=== PATIENT | male | born 1960 | race Caucasian/White ===

== ENCOUNTER 2021-01-27 03:55 | Inpatient (IN) ==
[2021-01-27] MEDS ORDERED: Insulin Infusion 100unit/100mL 100 UNIT/100 ML BAG IV ONE (04:23)
[2021-01-27] MEDS ORDERED: Vancomycin per Pharmacy 1 EA NOTE FOLLOW UP PRN (05:25)
[2021-01-27] MEDS: Dexmedetomidine 1,000 MCG in NS 0.9% 250 ml 240 ML IV SCH (05:48)
[2021-01-27] MEDS ORDERED: Cefepime 2 GM in Dextrose 2 GM/50 ML BAG IV SCH (06:00)
[2021-01-27 06:01] LABS: ABS Monocytes 0.8 10^3/ul (0-0.8); ABS Neutrophils 8.4 10^3/ul (1.5-7.7); Hematocrit 38 % (42-52); Hemoglobin 12.2 g/dL (14.0-18.0); Lymphocyte % 9.6 %; Mean Corpuscular HGB Conc 32 g/dL (31-36); Mean Corpuscular Hemoglobin 29 pg (27-31); Mean Corpuscular Volume 90 fL (80-94); Nucleated Red Blood Cells % 0.1; Red Blood Count 4.26 10^6 /uL (4.18-5.48); Red Cell Distribution Width 15 % (10-15); White Blood Count 10.2 10^3/uL (3.5-10.8)
[2021-01-27 06:02] LABS: INR 1.21 (0.86-1.15)
[2021-01-27 06:07] LABS: ALT 9 U/L (7-52); AST 19 U/L (13-39); Albumin 2.6 g/dL (3.2-5.2); Albumin/Globulin Ratio 0.6 (1-3); Alkaline Phosphatase 114 U/L (35-149); Blood Urea Nitrogen 52 mg/dL (6-24); CO2 Carbon Dioxide 24 mmol/L (22-32); Calcium 8.3 mg/dL (8.6-10.3); Creatine Kinase 198 U/L (10-223); Globulin 4.3 g/dL (2-4); Glucose 467 mg/dL (70-100); Indirect Bilirubin 0.3 mg/dL (0.3-1.0); Magnesium 2.4 mg/dL (1.9-2.7); Potassium 4.2 mmol/L (3.5-5.0); Total Protein 6.9 g/dL (6.4-8.9); eGFR CKD-EPI 56.3 (>60)
[2021-01-27 06:12] LABS: CRP High Sensitivity 189.58 mg/L (<2.00)
[2021-01-27 06:14] LABS: Troponin I 0.05 ng/mL (<0.03)
[2021-01-27 06:15] LABS: Anion Gap 9 mmol/L (2-11); Chloride 119 mmol/L (101-111); Sodium 152 mmol/L (135-145)
[2021-01-27 06:18] LABS: Platelet Count Platelets clumped. 10^3/uL (150-450)
[2021-01-27 06:23] LABS: Phosphorus 2.6 mg/dL (2.5-5.0)
[2021-01-27 06:26] LABS: TSH Ultra Thyroid Stim Horm 0.29 mcIU/mL (0.34-5.60)
[2021-01-27 06:37] LABS: Vitamin B12 1102 pg/mL (180-914)
[2021-01-27] MEDS ORDERED: Acetaminophen IV 1 GM/100ML 100 ML IV PRN (06:50)
[2021-01-27] MEDS ORDERED: NS 0.45% KCl 20 Meq 1000 ml 1,000 ML IV SCH (07:00)
[2021-01-27] MEDS: NS 0.45% KCl 20 Meq 1000 ml 1,000 ML IV SCH ×2 (07:41→20:15)
[2021-01-27 08:18] LABS: Glucose Confirmatory 495 mg/dL (70-100)
[2021-01-27 08:45] LABS: Vancomycin Random 19.3 mcg/mL
[2021-01-27 09:18] LABS: Glucose 520 mg/dL (70-100); Glucose Confirmatory 520 mg/dL (70-100)
[2021-01-27] MEDS ORDERED: Insulin GLARGINE 100 un/ml 10 ml VIAL SUBCUT ONE (09:20)
[2021-01-27 09:32] LABS: Blood Urea Nitrogen 52 mg/dL (6-24); CO2 Carbon Dioxide 22 mmol/L (22-32); Calcium 8.4 mg/dL (8.6-10.3); Magnesium 2.4 mg/dL (1.9-2.7); Phosphorus 2.6 mg/dL (2.5-5.0); Potassium 4.1 mmol/L (3.5-5.0); eGFR CKD-EPI 59.8 (>60)
[2021-01-27 09:38] LABS: Sodium 156 mmol/L (135-145)
[2021-01-27 09:39] LABS: Anion Gap 13 mmol/L (2-11); Chloride 121 mmol/L (101-111)
[2021-01-27 09:46] LABS: Glucose Confirmatory 483 mg/dL (70-100)
[2021-01-27] MEDS ORDERED: Insulin Infusion 100unit/100mL 100 UNIT/100 ML BAG IV SCH (10:00)
[2021-01-27 10:30] LABS: PCO2 Arterial 42 mmHg (35-45); PO2 Arterial 75 mmHg (80-100)
[2021-01-27] MEDS: Silver Sulfadiazine 1% 400gm JAR TOPICAL SCH ×2 (10:56→21:28)
[2021-01-27 11:35] LABS: Mean Platelet Volume 8.8 fL (7.4-10.4); Platelet Count 204 10^3/uL (150-450)
[2021-01-27 12:52] LABS: Calcium 8.6 mg/dL (8.6-10.3); Magnesium 2.7 mg/dL (1.9-2.7); Phosphorus 1.5 mg/dL (2.5-5.0); Potassium 3.4 mmol/L (3.5-5.0); eGFR CKD-EPI 68.7 (>60)
[2021-01-27] MEDS ORDERED: Potassium Phosphate IV 15 MMOLE in NS 0.9% 250 ml 250 ML IVPB ONE (13:03)
[2021-01-27] MEDS: Vancomycin 1,000 MG in NS 0.9% 250 ml 250 ML IVPB SCH (13:30)
[2021-01-27] MEDS ORDERED: Perflutren Lipid Microsphere 3 ML VIAL ONE (15:16)
[2021-01-27] MEDS: KCL 20 MEQ/100 ML IVPREMIX 20 MEQ/100 ML BAG IV SCH ×2 (15:28→17:41)
[2021-01-27] MEDS ORDERED: Piperacillin/Tazobac ADVAN 3.375 GM in NS 0.9% 100 ml BAG 100 ML IV ONE (16:40)
[2021-01-27] MEDS ORDERED: Zosyn per Pharmacy NOTE FOLLOW UP SCH (17:00)
[2021-01-27 17:28] LABS: Calcium 8.3 mg/dL (8.6-10.3); Magnesium 2.4 mg/dL (1.9-2.7); Phosphorus 2.5 mg/dL (2.5-5.0); Potassium 4.5 mmol/L (3.5-5.0); eGFR CKD-EPI 63.7 (>60)
[2021-01-27] MEDS ORDERED: Potassium Chloride IV 40 MEQ in Lactated Ringers 1000 ml BAG 1,000 ML IVPB SCH (17:30)
[2021-01-27] MEDS ORDERED: Dextrose 50% Syringe 50 ml 25 GM/50 ML SYRINGE IV PUSH PRN (17:41)
[2021-01-27] MEDS ORDERED: Insulin GLARGINE 100 un/ml 10 ml VIAL SUBCUT SCH (18:00)
[2021-01-27 21:07] LABS: Magnesium 2.4 mg/dL (1.9-2.7); Phosphorus 2.8 mg/dL (2.5-5.0); Potassium 4.5 mmol/L (3.5-5.0); eGFR CKD-EPI 68.1 (>60)
[2021-01-27] MEDS: Enoxaparin 40 MG/0.4 ML SYR SUBCUT SCH (21:28)
[2021-01-27] MEDS: ZOSYN 3.375 GM Q8H per EXTENDED INFUSION IV SCH (21:28)
[2021-01-28 00:14] LABS: Urine Appearance Cloudy; Urine Bilirubin Negative (Negative); Urine Blood 3+ (Negative); Urine Color Yellow; Urine Glucose 3+(>=500 mg/dL) (Negative); Urine Ketones 1+ (Negative); Urine Nitrite Negative (Negative); Urine Protein Negative (Negative); Urine Specific Gravity 1.026 (1.002-1.030); Urine Urobilinogen Negative (Negative)
[2021-01-28 00:21] LABS: Urine Bacteria 1+ (Absent); Urine Red Blood Cell 3+(>10/hpf) (Absent); Urine Uric Acid Crystals Present (Absent); Urine White Blood Cell 2+(11-20/hpf) (Absent)
[2021-01-28 00:25] LABS: Magnesium 2.3 mg/dL (1.9-2.7); Phosphorus 2.3 mg/dL (2.5-5.0); Potassium 4.1 mmol/L (3.5-5.0)
[2021-01-28 00:33] LABS: Urine Benzodiazepine Screen Presumptive Positive (None Detect); Urine Cannabinoids Screen None Detected (None Detect); Urine Opiates Screen None Detected (None Detect)
[2021-01-28] MEDS: NS 0.45% KCl 20 Meq 1000 ml 1,000 ML IV SCH ×2 (00:46→06:20)
[2021-01-28] MEDS: Vancomycin 1,000 MG in NS 0.9% 250 ml 250 ML IVPB SCH ×2 (01:10→13:41)
[2021-01-28 04:23] LABS: Hematocrit 32 % (42-52); Hemoglobin 10.4 g/dL (14.0-18.0); Mean Corpuscular HGB Conc 33 g/dL (31-36); Mean Corpuscular Hemoglobin 29 pg (27-31); Mean Corpuscular Volume 88 fL (80-94); Mean Platelet Volume 8.7 fL (7.4-10.4); Platelet Count 176 10^3/uL (150-450); Red Blood Count 3.63 10^6 /uL (4.18-5.48); Red Cell Distribution Width 15 % (10-15); White Blood Count 9.3 10^3/uL (3.5-10.8)
[2021-01-28 04:42] LABS: Albumin 2.2 g/dL (3.2-5.2); Albumin/Globulin Ratio 0.5 (1-3); Direct Bilirubin 0.1 mg/dL (0.03-0.18); Globulin 4.2 g/dL (2-4); Indirect Bilirubin 0.3 mg/dL (0.3-1.0); Magnesium 2.3 mg/dL (1.9-2.7); Phosphorus 2.1 mg/dL (2.5-5.0); Potassium 4.2 mmol/L (3.5-5.0); Total Bilirubin 0.4 mg/dL (0.2-1.0); Total Protein 6.4 g/dL (6.4-8.9); eGFR CKD-EPI 84.2 (>60)
[2021-01-28] MEDS: ZOSYN 3.375 GM Q8H per EXTENDED INFUSION IV SCH ×3 (05:51→21:32)
[2021-01-28] MEDS: Silver Sulfadiazine 1% 400gm JAR TOPICAL SCH ×2 (11:51→21:26)
[2021-01-28] MEDS: Insulin GLARGINE 100 un/ml 10 ml VIAL SUBCUT SCH ×2 (11:57→21:26)
[2021-01-28] MEDS ORDERED: Vancomycin Trough Check NOTE FOLLOW UP ONE (12:30)
[2021-01-28] MEDS ORDERED: Remdesivir 100 mg Vial 200 MG in NS 0.9% 250 ml 210 ML IV ONE (12:30)
[2021-01-28] MEDS: Dexmedetomidine 1,000 MCG in NS 0.9% 250 ml 240 ML IV SCH (12:34)
[2021-01-28 12:45] LABS: C Reactive Protein 185.23 mg/L (<8.01); Calcium 7.9 mg/dL (8.6-10.3); Potassium 4.3 mmol/L (3.5-5.0); eGFR CKD-EPI 90.5 (>60)
[2021-01-28 13:01] LABS: INR 1.3 (0.86-1.15)
[2021-01-28] MEDS ORDERED: Dextrose 50% Syringe 50 ml 25 GM/50 ML SYRINGE IV PUSH PRN (15:37)
[2021-01-28 18:37] LABS: Calcium 7.9 mg/dL (8.6-10.3); Potassium 3.9 mmol/L (3.5-5.0); eGFR CKD-EPI 95.2 (>60)
[2021-01-28] MEDS: Enoxaparin 40 MG/0.4 ML SYR SUBCUT SCH (21:25)
[2021-01-29] MEDS: Vancomycin 1,250 MG in NS 0.9% 250 ml 250 ML IVPB SCH ×3 (01:10→22:40)
[2021-01-29] MEDS: ZOSYN 3.375 GM Q8H per EXTENDED INFUSION IV SCH ×2 (06:14→14:37)
[2021-01-29] MEDS: Silver Sulfadiazine 1% 400gm JAR TOPICAL SCH ×2 (07:52→22:40)
[2021-01-29] MEDS: Insulin GLARGINE 100 un/ml 10 ml VIAL SUBCUT SCH ×2 (09:11→19:59)
[2021-01-29] MEDS ORDERED: Furosemide 40 mg/4 ml IV VIAL IV ONE (10:41)
[2021-01-29 12:15] LABS: Hematocrit 32 % (42-52); Hemoglobin 10.2 g/dL (14.0-18.0); Mean Corpuscular HGB Conc 33 g/dL (31-36); Mean Corpuscular Hemoglobin 29 pg (27-31); Mean Corpuscular Volume 88 fL (80-94); Mean Platelet Volume 9.3 fL (7.4-10.4); Platelet Count 118 10^3/uL (150-450); Red Blood Count 3.58 10^6 /uL (4.18-5.48); Red Cell Distribution Width 15 % (10-15); White Blood Count 8.1 10^3/uL (3.5-10.8)
[2021-01-29 12:33] LABS: Albumin 2.3 g/dL (3.2-5.2); Albumin/Globulin Ratio 0.5 (1-3); C Reactive Protein 139.83 mg/L (<8.01); Calcium 8.3 mg/dL (8.6-10.3); Globulin 4.2 g/dL (2-4); Magnesium 2.2 mg/dL (1.9-2.7); Phosphorus 2.8 mg/dL (2.5-5.0); Potassium 3.7 mmol/L (3.5-5.0); Total Bilirubin 0.6 mg/dL (0.2-1.0); Total Protein 6.5 g/dL (6.4-8.9)
[2021-01-29] MEDS: Remdesivir 100 mg Vial 100 MG in NS 0.9% 250 ml 230 ML IV SCH (12:50)
[2021-01-29] MEDS ORDERED: Dextrose 50% Syringe 50 ml 25 GM/50 ML SYRINGE IV PUSH PRN (15:55)
[2021-01-29] MEDS ORDERED: LORazepam 2 mg VIAL 1 ml IV PUSH ONE (19:45)
[2021-01-29] MEDS ORDERED: Lorazepam PYXIS KEY PRN (19:45)
[2021-01-29] MEDS ORDERED: Lorazepam PYXIS KEY ONE (19:53)
[2021-01-29] MEDS: Enoxaparin 40 MG/0.4 ML SYR SUBCUT SCH (20:00)
[2021-01-29] MEDS: Saline FLUSH-CENTRAL 10 ML SYRINGE CENT\\PICC SCH (20:00)
[2021-01-29] MEDS ORDERED: Iodixanol (CONTRAST) 320 MG/ML 100 ML SDV IV ONE (20:38)
[2021-01-29] MEDS ORDERED: Gadoteridol (CONTRAST) 279.3 MG/ML 10 ML IV ONE (20:49)
[2021-01-29] MEDS ORDERED: cefTRIAXone 2 GM ADDV.VIAL 2 GM in NS 0.9% 100 ml BAG 100 ML IV SCH (21:00)
[2021-01-30 05:17] LABS: Hematocrit 31 % (42-52); Hemoglobin 10.1 g/dL (14.0-18.0); Mean Corpuscular HGB Conc 33 g/dL (31-36); Mean Corpuscular Hemoglobin 29 pg (27-31); Mean Corpuscular Volume 86 fL (80-94); Platelet Count 152 10^3/uL (150-450); Red Blood Count 3.52 10^6 /uL (4.18-5.48); Red Cell Distribution Width 15 % (10-15); White Blood Count 7.1 10^3/uL (3.5-10.8)
[2021-01-30 05:30] LABS: Calcium 7.9 mg/dL (8.6-10.3); Magnesium 2.1 mg/dL (1.9-2.7); Potassium 3.3 mmol/L (3.5-5.0); eGFR CKD-EPI 87.2 (>60)
[2021-01-30] MEDS ORDERED: NS 0.45% 1000 ml BAG 1,000 ML IV SCH ×2 (06:00→14:16)
[2021-01-30] MEDS: KCL 20 MEQ/100 ML IVPREMIX 20 MEQ/100 ML BAG IV SCH ×3 (06:31→11:27)
[2021-01-30] MEDS: Saline FLUSH-CENTRAL 10 ML SYRINGE CENT\\PICC SCH ×2 (08:05→20:59)
[2021-01-30] MEDS: Insulin GLARGINE 100 un/ml 10 ml VIAL SUBCUT SCH ×2 (08:23→21:27)
[2021-01-30] MEDS: Silver Sulfadiazine 1% 400gm JAR TOPICAL SCH ×2 (08:28→21:04)
[2021-01-30] MEDS: Remdesivir 100 mg Vial 100 MG in NS 0.9% 250 ml 230 ML IV SCH (08:52)
[2021-01-30] MEDS ORDERED: Vancomycin Trough Check NOTE FOLLOW UP ONE (11:00)
[2021-01-30 13:57] LABS: Calcium 7.7 mg/dL (8.6-10.3); Potassium 3.7 mmol/L (3.5-5.0); eGFR CKD-EPI 91.6 (>60)
[2021-01-30] MEDS: Oxacillin 2 GM in NS 0.9% 100 ml BAG 100 ML IVPB SCH ×3 (14:09→23:12)
[2021-01-30] MEDS ORDERED: Magnesium Hydroxide LIQ 30 ML UDC PO ONE (15:12)
[2021-01-30] MEDS: Saliva Substitute (NF) 1 SPRAY BTL MT SCH ×4 (16:52→21:00)
[2021-01-30 19:17] LABS: Calcium 7.5 mg/dL (8.6-10.3); Potassium 3.4 mmol/L (3.5-5.0); eGFR CKD-EPI 89.4 (>60)
[2021-01-30] MEDS ORDERED: Potassium Chloride LIQUID 20 MEQ/15 ML LIQUID PO ONE (19:21)
[2021-01-30] MEDS ORDERED: NS 0.9% w/ 40 Meq KCL 1000 ML 1,000 ML IV SCH (20:00)
[2021-01-30] MEDS: Enoxaparin 40 MG/0.4 ML SYR SUBCUT SCH (20:58)
[2021-01-30] MEDS: Senna TAB 8.6 mg TAB PO SCH (20:59)
[2021-01-31] MEDS: Saliva Substitute (NF) 1 SPRAY BTL MT SCH ×14 (00:20→22:54)
[2021-01-31] MEDS: Oxacillin 2 GM in NS 0.9% 100 ml BAG 100 ML IVPB SCH ×6 (02:06→23:22)
[2021-01-31 06:52] LABS: Hematocrit 29 % (42-52); Hemoglobin 9.4 g/dL (14.0-18.0); Mean Corpuscular HGB Conc 32 g/dL (31-36); Mean Corpuscular Hemoglobin 28 pg (27-31); Mean Corpuscular Volume 88 fL (80-94); Mean Platelet Volume 9.1 fL (7.4-10.4); Platelet Count 138 10^3/uL (150-450); Red Blood Count 3.31 10^6 /uL (4.18-5.48); Red Cell Distribution Width 15 % (10-15); White Blood Count 6.1 10^3/uL (3.5-10.8)
[2021-01-31 06:55] LABS: Calcium 7.4 mg/dL (8.6-10.3); Magnesium 2.1 mg/dL (1.9-2.7); Potassium 3.6 mmol/L (3.5-5.0)
[2021-01-31] MEDS: Silver Sulfadiazine 1% 400gm JAR TOPICAL SCH (09:38)
[2021-01-31] MEDS ORDERED: KCL 20 MEQ/100 ML IVPREMIX 20 MEQ/100 ML BAG IV ONE (10:38)
[2021-01-31] MEDS: Saline FLUSH-CENTRAL 10 ML SYRINGE CENT\\PICC SCH ×2 (10:47→22:54)
[2021-01-31] MEDS: Remdesivir 100 mg Vial 100 MG in NS 0.9% 250 ml 230 ML IV SCH (10:48)
[2021-01-31] MEDS: Senna TAB 8.6 mg TAB PO SCH ×2 (11:13→19:35)
[2021-01-31] MEDS ORDERED: Buffered Lidocaine 1% SYRIN 1 ml INTRADERM ONE (11:18)
[2021-01-31] MEDS: Insulin GLARGINE 100 un/ml 10 ml VIAL SUBCUT SCH ×2 (16:58→22:55)
[2021-01-31 22:24] LABS: Calcium 7.4 mg/dL (8.6-10.3); Potassium 3.2 mmol/L (3.5-5.0); eGFR CKD-EPI 88.3 (>60)
[2021-01-31] MEDS: Enoxaparin 40 MG/0.4 ML SYR SUBCUT SCH (22:55)
[2021-02-01] MEDS: Silver Sulfadiazine 1% 400gm JAR TOPICAL SCH ×3 (00:04→21:56)
[2021-02-01] MEDS: Saliva Substitute (NF) 1 SPRAY BTL MT SCH ×12 (00:17→22:45)
[2021-02-01] MEDS: Oxacillin 2 GM in NS 0.9% 100 ml BAG 100 ML IVPB SCH ×6 (02:35→21:54)
[2021-02-01 06:35] LABS: Hematocrit 29 % (42-52); Hemoglobin 9.7 g/dL (14.0-18.0); Mean Corpuscular HGB Conc 34 g/dL (31-36); Mean Corpuscular Hemoglobin 29 pg (27-31); Mean Corpuscular Volume 86 fL (80-94); Mean Platelet Volume 8.6 fL (7.4-10.4); Platelet Count 166 10^3/uL (150-450); Red Blood Count 3.33 10^6 /uL (4.18-5.48); Red Cell Distribution Width 14 % (10-15); White Blood Count 6.2 10^3/uL (3.5-10.8)
[2021-02-01 06:52] LABS: Calcium 7.5 mg/dL (8.6-10.3); Magnesium 2.1 mg/dL (1.9-2.7); Phosphorus 4.1 mg/dL (2.5-5.0); Potassium 2.8 mmol/L (3.5-5.0); eGFR CKD-EPI 77.8 (>60)
[2021-02-01] MEDS: Saline FLUSH-CENTRAL 10 ML SYRINGE CENT\\PICC SCH ×2 (07:56→21:56)
[2021-02-01] MEDS: Senna TAB 8.6 mg TAB PO SCH ×2 (07:56→21:53)
[2021-02-01] MEDS ORDERED: Potassium Chlor 10 meq TAB PO ONE (09:43)
[2021-02-01] MEDS: Remdesivir 100 mg Vial 100 MG in NS 0.9% 250 ml 230 ML IV SCH (10:22)
[2021-02-01] MEDS: KCL 20 MEQ/100 ML IVPREMIX 20 MEQ/100 ML BAG IV SCH ×2 (10:23→12:44)
[2021-02-01] MEDS ORDERED: NS 0.45% 1000 ml BAG 1,000 ML IV SCH (16:00)
[2021-02-01] MEDS: Insulin GLARGINE 100 un/ml 10 ml VIAL SUBCUT SCH (21:54)
[2021-02-01] MEDS: Enoxaparin 40 MG/0.4 ML SYR SUBCUT SCH (21:56)
[2021-02-02] MEDS: Oxacillin 2 GM in NS 0.9% 100 ml BAG 100 ML IVPB SCH ×6 (01:45→22:33)
[2021-02-02] MEDS: Saliva Substitute (NF) 1 SPRAY BTL MT SCH ×13 (01:49→22:59)
[2021-02-02 06:02] LABS: ABS Eosinophils 0.1 10^3/ul (0-0.6); ABS Lymphocytes 0.9 10^3/ul (1.0-4.8); ABS Monocytes 0.3 10^3/ul (0-0.8); ABS Neutrophils 5.4 10^3/ul (1.5-7.7); Eosinophil % 1.6 %; Hematocrit 25 % (42-52); Hemoglobin 8.4 g/dL (14.0-18.0); Lymphocyte % 13.2 %; Mean Corpuscular HGB Conc 34 g/dL (31-36); Mean Corpuscular Hemoglobin 28 pg (27-31); Mean Corpuscular Volume 85 fL (80-94); Mean Platelet Volume 8.4 fL (7.4-10.4); Platelet Count 171 10^3/uL (150-450); Red Blood Count 2.96 10^6 /uL (4.18-5.48); Red Cell Distribution Width 14 % (10-15); White Blood Count 6.7 10^3/uL (3.5-10.8)
[2021-02-02 06:57] LABS: eGFR CKD-EPI 101.8 (>60)
[2021-02-02 07:23] LABS: Calcium 6.2 mg/dL (8.6-10.3); Potassium 2.4 mmol/L (3.5-5.0)
[2021-02-02] MEDS: Saline FLUSH-CENTRAL 10 ML SYRINGE CENT\\PICC SCH ×2 (09:55→19:09)
[2021-02-02] MEDS: Silver Sulfadiazine 1% 400gm JAR TOPICAL SCH ×2 (09:56→22:59)
[2021-02-02] MEDS: Senna TAB 8.6 mg TAB PO SCH ×2 (09:56→19:18)
[2021-02-02 10:19] LABS: Calcium 7.4 mg/dL (8.6-10.3); eGFR CKD-EPI 84.2 (>60)
[2021-02-02 10:21] LABS: Potassium 2.7 mmol/L (3.5-5.0)
[2021-02-02] MEDS: Potassium Chlor 20 meq TAB.ER PO SCH ×2 (11:55→14:04)
[2021-02-02] MEDS: KCL 20 MEQ/100 ML IVPREMIX 20 MEQ/100 ML BAG IV SCH ×2 (11:55→14:04)
[2021-02-02 13:24] LABS: Magnesium 1.9 mg/dL (1.9-2.7)
[2021-02-02] MEDS: Enoxaparin 40 MG/0.4 ML SYR SUBCUT SCH (22:31)
[2021-02-02] MEDS: Insulin GLARGINE 100 un/ml 10 ml VIAL SUBCUT SCH (22:32)
[2021-02-03] MEDS: Saliva Substitute (NF) 1 SPRAY BTL MT SCH ×11 (01:24→22:20)
[2021-02-03] MEDS: Oxacillin 2 GM in NS 0.9% 100 ml BAG 100 ML IVPB SCH ×6 (02:10→22:19)
[2021-02-03 06:51] LABS: ABS Eosinophils 0.1 10^3/ul (0-0.6); ABS Lymphocytes 0.9 10^3/ul (1.0-4.8); ABS Monocytes 0.4 10^3/ul (0-0.8); ABS Neutrophils 5.1 10^3/ul (1.5-7.7); Eosinophil % 0.9 %; Hematocrit 26 % (42-52); Hemoglobin 8.8 g/dL (14.0-18.0); Lymphocyte % 14.3 %; Mean Corpuscular HGB Conc 34 g/dL (31-36); Mean Corpuscular Hemoglobin 29 pg (27-31); Mean Corpuscular Volume 85 fL (80-94); Mean Platelet Volume 8.3 fL (7.4-10.4); Nucleated Red Blood Cells % 0.1; Platelet Count 220 10^3/uL (150-450); Red Blood Count 3.05 10^6 /uL (4.18-5.48); Red Cell Distribution Width 14 % (10-15); White Blood Count 6.5 10^3/uL (3.5-10.8)
[2021-02-03 07:00] LABS: Calcium 7.3 mg/dL (8.6-10.3); Magnesium 2.1 mg/dL (1.9-2.7); eGFR CKD-EPI 87.2 (>60)
[2021-02-03] MEDS ORDERED: Potassium Chlor 20 meq TAB.ER PO ONE (08:54)
[2021-02-03] MEDS: Saline FLUSH-CENTRAL 10 ML SYRINGE CENT\\PICC SCH ×2 (09:00→22:18)
[2021-02-03] MEDS: Senna TAB 8.6 mg TAB PO SCH ×2 (09:03→20:01)
[2021-02-03] MEDS: Silver Sulfadiazine 1% 400gm JAR TOPICAL SCH ×2 (09:06→22:21)
[2021-02-03] MEDS: KCL 20 MEQ/100 ML IVPREMIX 20 MEQ/100 ML BAG IV SCH ×2 (09:19→11:30)
[2021-02-03] MEDS: Insulin GLARGINE 100 un/ml 10 ml VIAL SUBCUT SCH (22:18)
[2021-02-03] MEDS: Enoxaparin 40 MG/0.4 ML SYR SUBCUT SCH (22:19)
[2021-02-04] MEDS: Saliva Substitute (NF) 1 SPRAY BTL MT SCH ×12 (00:27→21:02)
[2021-02-04] MEDS: Oxacillin 2 GM in NS 0.9% 100 ml BAG 100 ML IVPB SCH ×6 (02:22→20:56)
[2021-02-04 06:29] LABS: Calcium 7.3 mg/dL (8.6-10.3); Magnesium 2.1 mg/dL (1.9-2.7); Potassium 2.9 mmol/L (3.5-5.0); eGFR CKD-EPI 95.2 (>60)
[2021-02-04] MEDS: Saline FLUSH-CENTRAL 10 ML SYRINGE CENT\\PICC SCH ×2 (08:30→22:10)
[2021-02-04] MEDS: Senna TAB 8.6 mg TAB PO SCH ×2 (08:33→22:11)
[2021-02-04] MEDS: Silver Sulfadiazine 1% 400gm JAR TOPICAL SCH ×2 (08:38→21:01)
[2021-02-04] MEDS: KCL 20 MEQ/100 ML IVPREMIX 20 MEQ/100 ML BAG IV SCH ×3 (11:09→18:20)
[2021-02-04] MEDS ORDERED: Ondansetron ODT 4 mg TAB 4 MG TAB SL PRN (18:15)
[2021-02-04] MEDS: Enoxaparin 40 MG/0.4 ML SYR SUBCUT SCH (20:55)
[2021-02-04] MEDS: Insulin GLARGINE 100 un/ml 10 ml VIAL SUBCUT SCH (20:56)
[2021-02-05] MEDS: Saliva Substitute (NF) 1 SPRAY BTL MT SCH ×12 (00:58→22:23)
[2021-02-05] MEDS: Oxacillin 2 GM in NS 0.9% 100 ml BAG 100 ML IVPB SCH ×6 (02:03→21:30)
[2021-02-05 06:29] LABS: ABS Eosinophils 0.1 10^3/ul (0-0.6); ABS Lymphocytes 1.5 10^3/ul (1.0-4.8); ABS Monocytes 0.6 10^3/ul (0-0.8); Eosinophil % 0.8 %; Hematocrit 26 % (42-52); Hemoglobin 8.7 g/dL (14.0-18.0); Lymphocyte % 18.9 %; Mean Corpuscular HGB Conc 34 g/dL (31-36); Mean Corpuscular Hemoglobin 29 pg (27-31); Mean Corpuscular Volume 85 fL (80-94); Mean Platelet Volume 7.5 fL (7.4-10.4); Platelet Count 361 10^3/uL (150-450); Red Blood Count 3.05 10^6 /uL (4.18-5.48); Red Cell Distribution Width 14 % (10-15); White Blood Count 8.2 10^3/uL (3.5-10.8)
[2021-02-05 06:42] LABS: Calcium 7.2 mg/dL (8.6-10.3); Potassium 2.9 mmol/L (3.5-5.0)
[2021-02-05] MEDS ORDERED: Potassium Chlor 20 meq TAB.ER PO ONE (08:56)
[2021-02-05] MEDS ORDERED: KCL 20 MEQ/100 ML IVPREMIX 20 MEQ/100 ML BAG IV ONE (08:57)
[2021-02-05] MEDS: Saline FLUSH-CENTRAL 10 ML SYRINGE CENT\\PICC SCH (09:12)
[2021-02-05] MEDS: Senna TAB 8.6 mg TAB PO SCH ×2 (09:12→22:22)
[2021-02-05] MEDS: Silver Sulfadiazine 1% 400gm JAR TOPICAL SCH ×2 (09:14→22:22)
[2021-02-05] MEDS: Potassium Chlor 20 meq TAB.ER PO SCH (11:31)
[2021-02-05 21:50] LABS: Calcium 7.3 mg/dL (8.6-10.3); Potassium 3.9 mmol/L (3.5-5.0); eGFR CKD-EPI 101.4 (>60)
[2021-02-05] MEDS: Enoxaparin 40 MG/0.4 ML SYR SUBCUT SCH (22:22)
[2021-02-06] MEDS: Saline FLUSH-CENTRAL 10 ML SYRINGE CENT\\PICC SCH ×3 (00:32→20:14)
[2021-02-06] MEDS: Insulin GLARGINE 100 un/ml 10 ml VIAL SUBCUT SCH ×2 (00:33→20:12)
[2021-02-06] MEDS: Saliva Substitute (NF) 1 SPRAY BTL MT SCH ×11 (00:33→23:00)
[2021-02-06] MEDS: Oxacillin 2 GM in NS 0.9% 100 ml BAG 100 ML IVPB SCH ×6 (02:13→20:22)
[2021-02-06 06:11] LABS: ABS Eosinophils 0.1 10^3/ul (0-0.6); ABS Lymphocytes 1.2 10^3/ul (1.0-4.8); ABS Monocytes 0.4 10^3/ul (0-0.8); ABS Neutrophils 4.6 10^3/ul (1.5-7.7); Eosinophil % 1.5 %; Hematocrit 26 % (42-52); Hemoglobin 8.8 g/dL (14.0-18.0); Lymphocyte % 19.3 %; Mean Corpuscular HGB Conc 34 g/dL (31-36); Mean Corpuscular Hemoglobin 29 pg (27-31); Mean Corpuscular Volume 85 fL (80-94); Mean Platelet Volume 7.3 fL (7.4-10.4); Platelet Count 352 10^3/uL (150-450); Red Cell Distribution Width 14 % (10-15); White Blood Count 6.3 10^3/uL (3.5-10.8)
[2021-02-06 06:28] LABS: Calcium 7.3 mg/dL (8.6-10.3); Potassium 3.7 mmol/L (3.5-5.0); eGFR CKD-EPI 101.4 (>60)
[2021-02-06] MEDS ORDERED: Midazolam 5 mg/5 ml VIAL 1 mg/ml 5 ml VIAL (5 mg) ONE (07:45)
[2021-02-06] MEDS ORDERED: Naloxone 0.4 mg VIAL 0.4 mg/ml 1 ml VIAL ONE (07:45)
[2021-02-06] MEDS ORDERED: Flumazenil 0.5 mg/5 ml 0.1 MG/ML 5 ml VIAL ONE (07:45)
[2021-02-06] MEDS ORDERED: fentaNYL 100 mcg/2 ml 50 MCG/ML VIAL ONE (07:45)
[2021-02-06] MEDS: Potassium Chlor 20 meq TAB.ER PO SCH (10:28)
[2021-02-06] MEDS: Senna TAB 8.6 mg TAB PO SCH ×3 (10:29→20:15)
[2021-02-06] MEDS: Silver Sulfadiazine 1% 400gm JAR TOPICAL SCH ×2 (10:38→20:13)
[2021-02-06] MEDS: Enoxaparin 40 MG/0.4 ML SYR SUBCUT SCH (20:11)
[2021-02-07] MEDS: Saliva Substitute (NF) 1 SPRAY BTL MT SCH ×11 (01:00→23:14)
[2021-02-07] MEDS: Oxacillin 2 GM in NS 0.9% 100 ml BAG 100 ML IVPB SCH ×6 (01:48→23:09)
[2021-02-07 06:34] LABS: Calcium 7.4 mg/dL (8.6-10.3); Potassium 3.7 mmol/L (3.5-5.0); eGFR CKD-EPI 99.3 (>60)
[2021-02-07] MEDS: Senna TAB 8.6 mg TAB PO SCH ×2 (09:57→19:51)
[2021-02-07] MEDS: Silver Sulfadiazine 1% 400gm JAR TOPICAL SCH ×2 (10:06→19:51)
[2021-02-07] MEDS: Saline FLUSH-CENTRAL 10 ML SYRINGE CENT\\PICC SCH ×2 (10:06→19:47)
[2021-02-07] MEDS: Potassium Chlor 20 meq TAB.ER PO SCH (12:09)
[2021-02-07] MEDS: Enoxaparin 40 MG/0.4 ML SYR SUBCUT SCH (19:50)
[2021-02-07] MEDS: Insulin GLARGINE 100 un/ml 10 ml VIAL SUBCUT SCH (19:51)
[2021-02-08] MEDS: Saliva Substitute (NF) 1 SPRAY BTL MT SCH ×11 (00:09→22:57)
[2021-02-08] MEDS ORDERED: diPHENhydraMINE 25 mg TAB PO PRN (00:25)
[2021-02-08] MEDS: Oxacillin 2 GM in NS 0.9% 100 ml BAG 100 ML IVPB SCH ×6 (02:29→22:56)
[2021-02-08] MEDS: Senna TAB 8.6 mg TAB PO SCH ×2 (07:59→20:06)
[2021-02-08] MEDS: Silver Sulfadiazine 1% 400gm JAR TOPICAL SCH ×2 (07:59→20:06)
[2021-02-08] MEDS: Saline FLUSH-CENTRAL 10 ML SYRINGE CENT\\PICC SCH ×2 (08:00→20:29)
[2021-02-08] MEDS: Potassium Chlor 20 meq TAB.ER PO SCH (11:23)
[2021-02-08] MEDS: Insulin GLARGINE 100 un/ml 10 ml VIAL SUBCUT SCH (20:05)
[2021-02-09] MEDS: Saliva Substitute (NF) 1 SPRAY BTL MT SCH ×11 (02:21→20:35)
[2021-02-09] MEDS: Oxacillin 2 GM in NS 0.9% 100 ml BAG 100 ML IVPB SCH ×6 (02:22→22:34)
[2021-02-09 05:15] LABS: ABS Basophils 0.1 10^3/ul (0-0.2); ABS Eosinophils 0.1 10^3/ul (0-0.6); ABS Lymphocytes 1.1 10^3/ul (1.0-4.8); ABS Monocytes 0.5 10^3/ul (0-0.8); ABS Neutrophils 4.8 10^3/ul (1.5-7.7); Eosinophil % 1.1 %; Hematocrit 26 % (42-52); Hemoglobin 8.9 g/dL (14.0-18.0); Lymphocyte % 16.8 %; Mean Corpuscular HGB Conc 34 g/dL (31-36); Mean Corpuscular Hemoglobin 28 pg (27-31); Mean Corpuscular Volume 84 fL (80-94); Mean Platelet Volume 6.5 fL (7.4-10.4); Platelet Count 443 10^3/uL (150-450); Red Blood Count 3.14 10^6 /uL (4.18-5.48); Red Cell Distribution Width 14 % (10-15); White Blood Count 6.6 10^3/uL (3.5-10.8)
[2021-02-09 05:49] LABS: Albumin 2.2 g/dL (3.2-5.2); Albumin/Globulin Ratio 0.4 (1-3); C Reactive Protein 106.62 mg/L (<8.01); Globulin 5.5 g/dL (2-4); Total Bilirubin 0.3 mg/dL (0.2-1.0); Total Protein 7.7 g/dL (6.4-8.9); eGFR CKD-EPI 102.6 (>60)
[2021-02-09] MEDS: Senna TAB 8.6 mg TAB PO SCH ×2 (08:36→20:24)
[2021-02-09] MEDS: Silver Sulfadiazine 1% 400gm JAR TOPICAL SCH ×2 (08:36→20:25)
[2021-02-09] MEDS: Saline FLUSH-CENTRAL 10 ML SYRINGE CENT\\PICC SCH ×2 (08:42→20:24)
[2021-02-09] MEDS: Potassium Chlor 20 meq TAB.ER PO SCH (14:00)
[2021-02-09] MEDS: Insulin GLARGINE 100 un/ml 10 ml VIAL SUBCUT SCH (20:26)
[2021-02-10] MEDS: Saliva Substitute (NF) 1 SPRAY BTL MT SCH ×12 (01:35→22:53)
[2021-02-10] MEDS: Oxacillin 2 GM in NS 0.9% 100 ml BAG 100 ML IVPB SCH ×6 (02:01→22:28)
[2021-02-10] MEDS: Silver Sulfadiazine 1% 400gm JAR TOPICAL SCH ×2 (09:55→22:52)
[2021-02-10] MEDS: Senna TAB 8.6 mg TAB PO SCH ×2 (09:55→21:00)
[2021-02-10] MEDS: Saline FLUSH-CENTRAL 10 ML SYRINGE CENT\\PICC SCH ×2 (10:57→22:51)
[2021-02-10] MEDS: Potassium Chlor 20 meq TAB.ER PO SCH (12:00)
[2021-02-10] MEDS: Insulin GLARGINE 100 un/ml 10 ml VIAL SUBCUT SCH (22:51)
[2021-02-11] MEDS: Saliva Substitute (NF) 1 SPRAY BTL MT SCH ×11 (00:42→22:54)
[2021-02-11] MEDS: Oxacillin 2 GM in NS 0.9% 100 ml BAG 100 ML IVPB SCH ×6 (02:45→21:30)
[2021-02-11] MEDS: Saline FLUSH-CENTRAL 10 ML SYRINGE CENT\\PICC SCH ×2 (08:32→21:30)
[2021-02-11] MEDS: Silver Sulfadiazine 1% 400gm JAR TOPICAL SCH ×2 (08:33→21:09)
[2021-02-11] MEDS: Senna TAB 8.6 mg TAB PO SCH ×2 (08:33→21:30)
[2021-02-11] MEDS: Potassium Chlor 20 meq TAB.ER PO SCH (11:22)
[2021-02-11] MEDS: Insulin GLARGINE 100 un/ml 10 ml VIAL SUBCUT SCH (21:30)
[2021-02-12] MEDS: Saliva Substitute (NF) 1 SPRAY BTL MT SCH ×6 (00:16→12:54)
[2021-02-12] MEDS: Oxacillin 2 GM in NS 0.9% 100 ml BAG 100 ML IVPB SCH ×3 (02:13→09:54)
[2021-02-12] MEDS: Saline FLUSH-CENTRAL 10 ML SYRINGE CENT\\PICC SCH (08:12)
[2021-02-12] MEDS: Senna TAB 8.6 mg TAB PO SCH (08:18)
[2021-02-12] MEDS: Silver Sulfadiazine 1% 400gm JAR TOPICAL SCH (08:18)
[2021-02-12 11:18] VITALS: BP 132/76
[2021-02-12] MEDS: Potassium Chlor 20 meq TAB.ER PO SCH (12:54)
== END 2021-02-12 13:30 | disposition home or self-care (01) | DRG 720 ==
LOC: ICU 03:55 → SUATTDRO 03:55 → MED 01-31 19:52
PROVIDERS: ADMIT Internal Medicine; ATTEND Internal Medicine